=== PATIENT | male | born 1980 | race Caucasian/White ===

== ENCOUNTER 2023-04-21 03:21 | Emergency (ER) | payer OTHER, MEDICAID, SELFPAY ==
[2023-04-21 03:32] VITALS: BP 115/63; PULSE 96; RESP 18; TEMP 36.3; O2SAT 98; BMI 21.2
--- NOTE | 2023-04-21 04:00 | ED.GENADULT ---
HPI - General Adult General Chief complaint: Dental/Oral Stated complaint: abcess in tooth Time Seen by Provider: 04/21/23 03:37 Source: patient Mode of arrival: Ambulatory History of Present Illness HPI narrative: Patient is a 42-year-old male. He is here for evaluation of potential dental abscess in his left lower jaw and also potential cellulitis to his right lower extremity. He is had dental pain/abscess in the past. He is also had cellulitis in the past. He has been on different types of medications. States he is allergic to penicillin, clindamycin, ciprofloxacin. He was on a prescription for antibiotics for cellulitis when he was arrested and sent to nursing home. He states that he is unsure exactly what these antibiotics were however when I mentioned doxycycline he thought that this potentially could have been the medication. He thought that he was actually onto antibiotics but does not know the name of the 2nd one. He denies any fevers. No problems swallowing. Related Data Previous Rx's Medication Instructions Recorded doxycycline hyclate 100 mg tablet 100 mg PO DAILY 7 days #14 tabs 04/21/23 Review of Systems Constitutional Constitutional: Reports system reviewed and no additional complaints, except as documented ENT Ears, Nose, Mouth, and Throat: Reports system reviewed and no additional complaints, except as documented Respiratory Respiratory: Reports system reviewed and no additional complaints, except as documented Integumentary/Breasts Skin/Breast: Reports system reviewed and no additional complaints, except as documented Patient History Social History Smoking Status: Current every day smoker Smoking Status: Current every day smoker alcohol intake frequency: a few times a week Substance Use Type: marijuana Exam Initial Vital Signs Initial Vital Signs: Vital Signs Temperature 97.3 F L 04/21/23 03:32 Pulse Rate 96 H 04/21/23 03:32 Respiratory Rate 18 04/21/23 03:32 Blood Pressure 115/63 04/21/23 03:32 Pulse Oximetry 98 04/21/23 03:32 Oxygen Delivery Method Room Air 04/21/23 03:32 HENMT Head: normal to inspection Teeth and gingiva: poor dentition Throat: posterior oropharynx normal, tonsils normal and uvula midline Neck Lymphatic: No lymphadenopathy Resp Effort & Inspection: normal respiratory effort Skin Other: Patient has an area of redness on his right anterior edwards that is red and warm. There is no fluctuance. Neuro General: patient alert and patient awake Extrem Other: Redness to right anterior edwards Course Orders Ordered: Discontinued Medications Doxycycline Hyclate (Doxycycline Hyclate 100 Mg Tablet) 100 mg PO NOW ONE Stop: 04/21/23 04:03 Last Admin: 04/21/23 04:24 Dose: 100 mg Documented By: ASHA Vital Signs Vital signs: Vital Signs - 8 hr 04/21/23 03:32 Temperature 97.3 F L Pulse Rate 96 H Respiratory Rate 18 Blood Pressure 115/63 Pulse Oximetry 98 Oxygen Delivery Method Room Air Medical Decision Making MDM Narrative Medical decision making narrative: He does have an area of redness in his right lower anterior edwards that would be consistent with a cellulitis. I have low suspicion for abscess. He does have a fractured left lower posterior premolar. There is no definitive abscess seen on the exam. There is no lymphadenopathy. Minimal if any swelling to his left mandibular region. Patient was given a dose of doxycycline here in the emergency department. Given his allergies this would be the best medication to treat his cellulitis. I did tell the patient that he needs to follow-up with a dentist. He was given a prescription for the remainder of the course of antibiotics. Discharge Plan Departure Patient Disposition: Home Clinical Impression: Toothache, Cellulitis Instructions: DI for Cellulitis -- Adult, DI for Dental Pain Activity Restrictions/Additional Instructions: I do recommend that you take the antibiotics as directed. It is important that you follow-up with a dentist as you were going to need a dental specialist for definitive treatment of your discomfort. Return to the emergency department for new or worsening symptoms. Prescriptions: New doxycycline hyclate 100 mg tablet 100 mg PO DAILY 7 Days Qty: 14 0RF Stand Alone Forms: Patient Portal/API
[2023-04-21] MEDS: DOXYCYCLINE HYCLATE 100 MG TABLET PO (04:24)
[2023-04-21 04:58] VITALS: BP 119/76; PULSE 71; RESP 18; O2SAT 100
== END 2023-04-21 04:59 | disposition home or self-care (01) ==
PROVIDERS: Emergency Provider Emergency Medicine
DX: K08.89 Other specified disorders of teeth and supporting structures (principal); K12.2 Cellulitis and abscess of mouth
CPT/HCPCS: 99283